=== PATIENT | female | born 1995 | race African-American/Black ===

== ENCOUNTER 2016-06-15 14:02 | Emergency (ER) | payer MEDICAID ==
[~2016-06-15] VITALS: Ht 170.2 cm; Wt 59.0 kg
[2016-06-15 15:16] LABS: BASO # 0.1 x10^3/uL (0.0-0.2); BASO % 1 % (0-3); EOS % 5 % (0-3); HEMATOCRIT 38.7 % (36.0-47.0); HEMOGLOBIN 12.6 g/dL (12.0-15.5); LYMPH # 1.8 x10^3/uL (1.0-4.8); LYMPH % 23 % (24-48); MEAN CORPUSCULAR HEMOGLOBIN 26 pg (25-35); MEAN CORPUSCULAR HGB CONC 33 g/dL (31-37); MEAN CORPUSCULAR VOLUME 80 fL (79-100); MONO % 9 % (0-9); NEUT % 62 % (31-73); PLATELET COUNT 323 x10^3/uL (140-400); RED BLOOD COUNT 4.84 x10^6/uL (3.50-5.40); RED CELL DISTRIBUTION WIDTH 12.8 % (11.5-14.5); WHITE BLOOD COUNT 7.6 x10^3/uL (4.0-11.0)
--- NOTE | 2016-06-15 15:21 | PHYS DOC ---
Past Medical History Past Medical History: No Pertinent History Past Surgical History: No Surgical History Alcohol Use: Occasionally Drug Use: None Adult General Chief Complaint Chief Complaint: ABDOMINAL PAIN HPI HPI Patient is a 20 year old female who presents with complaint of abdominal pain for the past 3 days. Patient states that she has had persistent dull pain throughout her abdomen but states that she has been having intermittent sharp pain in her right upper quadrant. Patient denies any significant surgical history. Patient states that she has history of hypoglycemia and is not on any medications at this time. Patient states that she has had intermittent nausea but no vomiting. Patient also notes that she has had an increase in stool volume. Patient denies watery stools but states that they have been soft. Patient has not seen any blood in her stools. Patient has not taken any medications to help with her symptoms. Patient has had decreased oral intake during the time of her symptoms. Patient currently rates her pain as 6 out of 10. Review of Systems Review of Systems Constitutional: Denies fever or chills [] Eyes: Denies change in visual acuity, redness, or eye pain [] HENT: Denies nasal congestion or sore throat [] Respiratory: Denies cough or shortness of breath [] Cardiovascular: Denies chest pain or edema [] GI: Abdominal pain, nausea, denies bloody stools [] : Denies dysuria or hematuria [] Musculoskeletal: Denies back pain or joint pain [] Integument: Denies rash or skin lesions [] Neurologic: Denies headache, focal weakness or sensory changes [] Current Medications Current Medications Current Medications Medications (Trade) Dose Ordered Sig/Lias Start Time Stop Time Status Last Admin Dose Admin Fentanyl Citrate 50 mcg 50 mcg PRN Q15MIN PRN 06/15/16 15:15 06/15/16 17:46 DC 06/15/16 16:32 50 MCG Iohexol (Omnipaque 300 Mg/ml) 75 ml 1X ONCE 06/15/16 16:30 06/15/16 16:31 DC 06/15/16 16:38 75 ML Multi-Ingredient Mouthwash/Gargle (Gi Cocktail Single Dose) 15 ml 1X ONCE 06/15/16 15:30 06/15/16 15:31 DC 06/15/16 15:33 15 ML Ondansetron HCl (Zofran) 4 mg 1X ONCE 06/15/16 15:30 06/15/16 15:31 DC 06/15/16 15:32 4 MG Sodium Chloride (Iv Sodium Chloride 0.9% 1000ml Bag) 1,000 ml @ 1,000 mls/hr Q1H 06/15/16 15:30 06/15/16 16:29 DC 06/15/16 15:32 1,000 MLS/HR Allergies Allergies Allergies Coded Allergies Type Severity Reaction Last Updated Verified acetaminophen Allergy Unknown Itching 06/15/16 Yes hydrocodone Allergy Unknown Itching 06/15/16 Yes Physical Exam Physical Exam Constitutional: Well developed, well nourished, no acute distress, non-toxic appearance. [] HENT: Normocephalic, atraumatic, bilateral external ears normal, oropharynx moist, no oral exudates, nose normal. [] Eyes: PERRLA, EOMI, conjunctiva normal, no discharge. [] Neck: Normal range of motion, no tenderness, supple, no stridor. [] Cardiovascular:Heart rate regular rhythm, no murmur [] Lungs & Thorax: Bilateral breath sounds clear to auscultation [] Abdomen: Bowel sounds normal, soft, right upper quadrant and right lower quadrant tenderness to palpation, mild guarding, no rebound tenderness, no masses, no pulsatile masses. [] Skin: Warm, dry, no erythema, no rash. [] Back: No tenderness, no CVA tenderness. [] Extremities: No tenderness, no cyanosis, no clubbing, ROM intact, no edema. [] Neurologic: Alert and oriented X 3, normal motor function, normal sensory function, no focal deficits noted. [] Current Patient Data Vital Signs Vital Signs Date Time Temp Pulse Resp B/P Pulse Ox O2 Delivery O2 Flow Rate FiO2 06/15/16 17:19 64 17 105/61 99 06/15/16 16:32 Room Air 06/15/16 14:10 98.1 98.1 Lab Values Laboratory Tests Test 06/15/16 13:37 06/15/16 14:30 POC Urine HCG, Qualitative Hcg negative (Negative) White Blood Count 7.6x10^3/uL (4.0-11.0) Red Blood Count 4.84x10^6/uL (3.50-5.40) Hemoglobin 12.6g/dL (12.0-15.5) Hematocrit 38.7% (36.0-47.0) Mean Corpuscular Volume 80fL (79-100) Mean Corpuscular Hemoglobin 26pg (25-35) Mean Corpuscular Hemoglobin Concent 33g/dL (31-37) Red Cell Distribution Width 12.8% (11.5-14.5) Platelet Count 323x10^3/uL (140-400) Neutrophils (%) (Auto) 62% (31-73) Lymphocytes (%) (Auto) 23% (24-48) L Monocytes (%) (Auto) 9% (0-9) Eosinophils (%) (Auto) 5% (0-3) H Basophils (%) (Auto) 1% (0-3) Neutrophils # (Auto) 4.7x10^3uL (1.8-7.7) Lymphocytes # (Auto) 1.8x10^3/uL (1.0-4.8) Monocytes # (Auto) 0.7x10^3/uL (0.0-1.1) Eosinophils # (Auto) 0.4x10^3/uL (0.0-0.7) Basophils # (Auto) 0.1x10^3/uL (0.0-0.2) Urine Collection Type Unknown Urine Color Yellow Urine Clarity Clear Urine pH 6.0 Urine Specific [place] 1.015 Urine Protein Negativemg/dL (NEG-TRACE) Urine Glucose (UA) Negativemg/dL (NEG) Urine Ketones (Stick) Negativemg/dL (NEG) Urine Blood Negative (NEG) Urine Nitrite Negative (NEG) Urine Bilirubin Negative (NEG) Urine Urobilinogen Dipstick 0.2mg/dL (0.2 mg/dL) Urine Leukocyte Esterase Negative (NEG) Urine RBC 0/HPF (0-2) Urine WBC Occ/HPF (0-4) Urine Squamous Epithelial Cells Few/LPF Urine Bacteria Few/HPF (0-FEW) Urine Mucus Mod/LPF Sodium Level 142mmol/L (136-145) Potassium Level 3.4mmol/L (3.5-5.1) L Chloride Level 104mmol/L (98-107) Carbon Dioxide Level 31mmol/L (21-32) Anion Gap 7 (6-14) Blood Urea Nitrogen 11mg/dL (7-20) Creatinine 0.9mg/dL (0.6-1.0) Estimated GFR (Cockcroft-Gault) 94.7 BUN/Creatinine Ratio 12 (6-20) Glucose Level 71mg/dL (70-99) Calcium Level 8.6mg/dL (8.5-10.1) Total Bilirubin 0.4mg/dL (0.2-1.0) Aspartate Amino Transferase (AST) 17U/L (15-37) Alanine Aminotransferase (ALT) 14U/L (14-59) Alkaline Phosphatase 89U/L (46-116) Total Protein 7.6g/dL (6.4-8.2) Albumin 3.7g/dL (3.4-5.0) Albumin/Globulin Ratio 0.9 (1.0-1.7) L Lipase 106U/L (73-393) Urine Opiates Screen Neg (NEG) Urine Methadone Screen Neg (NEG) Urine Barbiturates Neg (NEG) Urine Phencyclidine Screen Neg (NEG) Urine Amphetamine/Methamphetamine Neg (NEG) Urine Benzodiazepines Screen Neg (NEG) Urine Cocaine Screen Neg (NEG) Urine Cannabinoids Screen Neg (NEG) Urine Ethyl Alcohol Neg (NEG) Laboratory Tests 06/15/16 14:30 Laboratory Tests 06/15/16 14:30 EKG EKG Not performed [] Radiology/Procedures Radiology/Procedures [facility] [id number] [place] [address] IMAGING REPORT Signed PATIENT: TARIQ LLAMAS ACCOUNT: [id number] : 1995 LOCATION: ER AGE: 20 SEX: F EXAM STATUS: REG ER ORD. PHYSICIAN: ERIC RENEE MD REASON: right lower quadrant pain PROCEDURE: CT ABD PELV W/ IV CONTRST ONLY Indication right lower quadrant pain. Axial images through the abdomen and pelvis were obtained. No oral contrast was administered. Approximately 75 cc of Omnipaque 300 was administered intravenously. No prior CT imaging of the abdomen or pelvis is available. The lung bases are clear. No definite significant finding is seen in the liver. There is a small hypervascular mass in the right lobe, posteriorly, image 11 series 2. This may represent a flash hemangioma. It is almost certainly incidental. The spleen appears unremarkable. The gallbladder is grossly normal. No adrenal or renal pathology is seen and the pancreas appears unremarkable. Acute finding in the abdomen is not seen. In the pelvis no focal mass or inflammatory process is seen. The appendix is not seen as a discrete structure in the right lower quadrant however secondary signs to suggest appendicitis are not seen. IMPRESSION: No acute finding seen in the abdomen or pelvis. DICTATED and SIGNED BY: ANDRA STONE MD DATE: 06/15/16 1653 CC: ERIC RENEE MD; NO PCP ~ [facility] [address] [place] [address] IMAGING REPORT Signed PATIENT: TARIQ LLAMAS ACCOUNT: [id number] : 1995 LOCATION: ER AGE: 20 SEX: F EXAM STATUS: REG ER ORD. PHYSICIAN: ERIC RENEE MD REASON: right upper quadrant pain for 3 days PROCEDURE: ABDOMEN LTD Indication right upper quadrant pain. Grayscale imaging was performed. The examination was targeted to the right upper quadrant. The visualized pancreas appears unremarkable. The visualized inferior vena cava appeared normal. No mass or abnormality is seen in the visualized liver. The gallbladder is partially contracted but grossly normal. (The patient was not "nothing by mouth", fasting) Common bile duct diameter of approximately 2 mm is normal in the right kidney appears unremarkable. IMPRESSION: Partially contracted gallbladder. No definite abnormality seen in the right upper quadrant DICTATED and SIGNED BY: ANDRA STONE MD DATE: 06/15/16 1533 CC: ERIC RENEE MD; NO PCP ~ [] Course & Med Decision Making Course & Med Decision Making Pertinent Labs and Imaging studies reviewed. (See chart for details) Patient was started on IV fluids, fentanyl, Zofran, and given GI cocktail. On reevaluation, patient states her symptoms have nearly resolved at this time. Patient's imaging does not reveal an acute surgical process causing the patient' s pain. Patient's symptoms are likely atypical symptoms from viral gastroenteritis however the patient will still need to maintain close follow-up until her symptoms resolve. Recommended that the patient follow-up in the next 3 days with her primary physician and recommended return to the emergency department for any worsening symptoms. Patient will be prescribed Bentyl, Zofran , and Pepcid for outpatient treatment. Patient voiced understanding and was in agreement with treatment plan upon discharge. Dragon Disclaimer Dragon Disclaimer This electronic medical record was generated, in whole or in part, using a voice recognition dictation system. Departure Departure Impression: Primary Impression: Abdominal pain Additional Impression: Nausea Disposition: HOME, SELF-CARE Condition: IMPROVED Referrals: NO PCP (PCP) Patient Instructions: Abdominal Pain (Nonspecific) Additional Instructions: Follow-up with your primary doctor in the next 3 days for reevaluation. Return to emergency department for any worsening symptoms. Scripts Dicyclomine Hcl (Bentyl)10 Mg Capsule1 Cap PO TID #30 CAP Ref 0 Prov:ERIC RENEE MD 06/15/16 Famotidine (Pepcid)20 Mg [id number] Mg PO BID #30 TAB Prov:ERIC RENEE MD 06/15/16 Ondansetron (Zofran Odt)4 Mg Tab.rapdis1 Tab SL Q8HRS PRN NAUSEA/VOMITING #15 TAB Prov:ERIC RENEE MD 06/15/16 Problem Qualifiers Primary Impression: Abdominal pain Abdominal location: right upper quadrant Qualified Code: R10.11 - Right upper quadrant pain ERIC RENEE MD Jun 15, 2016 15:21
[2016-06-15 15:25] LABS: BARBITURATES NEG (NEG); BENZODIAZEPINES NEG (NEG); CANNABINOIDS NEG (NEG); COCAINE NEG (NEG); METHADONE NEG (NEG); OPIATES NEG (NEG); PHENCYCLIDINE NEG (NEG)
[2016-06-15 15:26] LABS: ETHANOL, URINE NEG (NEG)
[2016-06-15] MEDS ORDERED: IV NORMAL SALINE 1000ML BAG 1,000 ML IV SCH (15:30)
[2016-06-15] MEDS ORDERED: LIDO:MAALOX:DONNATAL 1:1:1 15 ML SINGLE DOSE SWSW ONE (15:30)
[2016-06-15] MEDS ORDERED: ONDANSETRON PF 4 MG/2 ML VIAL. IV ONE (15:30)
[2016-06-15] MEDS: FENTANYL PF 100 MCG/2 ML VIAL. IV PRN ×2 (15:33→16:32)
[2016-06-15 15:35] LABS: CALCIUM 8.6 mg/dL (8.5-10.1); CREATININE 0.9 mg/dL (0.6-1.0); GFR 94.7; POTASSIUM 3.4 mmol/L (3.5-5.1)
--- NOTE | 2016-06-15 15:37 | RAD ---
Indication right upper quadrant pain. Grayscale imaging was performed. The examination was targeted to the right upper quadrant. The visualized pancreas appears unremarkable. The visualized inferior vena cava appeared normal. No mass or abnormality is seen in the visualized liver. The gallbladder is partially contracted but grossly normal. (The patient was not "nothing by mouth", fasting) Common bile duct diameter of approximately 2 mm is normal in the right kidney appears unremarkable. IMPRESSION: Partially contracted gallbladder. No definite abnormality seen in the right upper quadrant
[2016-06-15 15:41] LABS: ALBUMIN 3.7 g/dL (3.4-5.0); ALBUMIN/GLOBULIN RATIO 0.9 (1.0-1.7); TOTAL BILIRUBIN 0.4 mg/dL (0.2-1.0); TOTAL PROTEIN 7.6 g/dL (6.4-8.2)
[2016-06-15 15:44] LABS: BACTERIA,URINE FEW /HPF (0-FEW); BILIRUBIN,URINE NEGATIVE (NEG); GLUCOSE,URINE NEGATIVE (NEG); NITRITE,URINE NEGATIVE (NEG); PROTEIN,URINE NEGATIVE (NEG-TRACE); RBC,URINE 0 /HPF (0-2); SQUAMOUS EPITHELIAL CELL,UR FEW /LPF; UROBILINOGEN,URINE 0.2 mg/dL (0.2 mg/dL); WBC,URINE OCC /HPF (0-4)
[2016-06-15] MEDS ORDERED: IOHEXOL 300 MG/ML 75 ML VIAL IV ONE (16:30)
--- NOTE | 2016-06-15 17:06 | RAD ---
Indication right lower quadrant pain. Axial images through the abdomen and pelvis were obtained. No oral contrast was administered. Approximately 75 cc of Omnipaque 300 was administered intravenously. No prior CT imaging of the abdomen or pelvis is available. The lung bases are clear. No definite significant finding is seen in the liver. There is a small hypervascular mass in the right lobe, posteriorly, image 11 series 2. This may represent a flash hemangioma. It is almost certainly incidental. The spleen appears unremarkable. The gallbladder is grossly normal. No adrenal or renal pathology is seen and the pancreas appears unremarkable. Acute finding in the abdomen is not seen. In the pelvis no focal mass or inflammatory process is seen. The appendix is not seen as a discrete structure in the right lower quadrant however secondary signs to suggest appendicitis are not seen. IMPRESSION: No acute finding seen in the abdomen or pelvis.
[2016-06-15 17:19] VITALS: BP 105/61
[2016-06-15] MEDS ORDERED: FAMO-63 PO (17:23)
[2016-06-15] MEDS ORDERED: DICY10CA53 PO (17:23)
[2016-06-15] MEDS ORDERED: ONDA4TAB10 SL (17:23)
== END 2016-06-15 17:40 | disposition home or self-care (01) ==
LOC: ER 14:14
DX: R10.11 Right upper quadrant pain (principal); R11.0 Nausea; Z88.5 Allergy status to narcotic agent; Z88.6 Allergy status to analgesic agent
CPT/HCPCS: 36415; 74177; 76705; 80053; 80305; 81001; 83690; 84703; 85027; 96361; 96374; 96375; 96376; 99285; J2405; J3010; J7030; Q9967; 81025; G0481